=== PATIENT | female | born 1970 | race Asian ===

== ENCOUNTER 2016-08-04 12:30 | Outpatient (CLI) | payer OTHER ==
[~2016-08-04 12:30] MED LIST: AMBIEN5 MG PO; AMLO10TA PO; CALCITRIOL0.25 MCG PO; CARV25TA PO; CARV6.25 PO; CLONIDINE0.1 MG PO; CLONIDINE0.2 MG PO; DILTCAP36 PO; HYDR-2748 PO; HYDRALAZINE50 MG PO; LEVE250T PO; LEVE500T5 PO; MINOXIDIL2.5 MG OR; MINOXIDIL2.5 MG PO; RENVELA800 MG OR; RENVELA800 MG PO; SENSIPAR60 MG PO
== END 2016-08-04 13:30 | disposition home or self-care (01) ==
LOC: RAD 12:30
DX: D86.89 Sarcoidosis of other sites (principal)

== ENCOUNTER 2017-05-24 15:19 | Inpatient (IN) | payer OTHER ==
[~2017-05-24] VITALS: Ht 162.6 cm; Wt 71.7 kg
[2017-05-24 15:25] VITALS: BP 147/87; TEMP 98.6
[2017-05-24 16:24] LABS: PLATELET COUNT 178 K/uL (152-353)
[2017-05-24 16:31] LABS: POTASSIUM 4.2 mmol/L (3.6-5.2)
[2017-05-24 17:30] VITALS: BP 152/88
[2017-05-24 18:10] VITALS: BP 144/80
[2017-05-24 20:00] VITALS: BP 144/70; TEMP 100
[2017-05-24 23:03] VITALS: BP 169/85; TEMP 101.3; Ht 162.6 cm; Wt 71.7 kg
[2017-05-25] VITALS: BP 150/77; TEMP 99.7
[2017-05-25 04:00] VITALS: BP 165/84; TEMP 99.4
[2017-05-25 06:12] LABS: PLATELET COUNT 138 K/uL (152-353)
[2017-05-25 06:16] LABS: POTASSIUM 3.5 mmol/L (3.6-5.2)
[2017-05-25 08:00] VITALS: BP 172/88; TEMP 98.6
[2017-05-25 12:00] VITALS: BP 165/90; TEMP 98
[2017-05-25 16:00] VITALS: BP 172/92; TEMP 98.8
[2017-05-25 20:00] VITALS: BP 180/102; TEMP 98.4
[2017-05-26] VITALS: BP 183/99; TEMP 98.6
[2017-05-26 04:00] VITALS: BP 148/56; TEMP 98.2
[2017-05-26 08:00] VITALS: BP 177/96; TEMP 99.2
[2017-05-26 13:15] LABS: PLATELET COUNT 138 K/uL (152-353)
[2017-05-26 13:31] LABS: POTASSIUM 3.5 mmol/L (3.6-5.2)
[2017-05-26 16:00] VITALS: BP 102/56; TEMP 98.3
[2017-05-26 20:00] VITALS: BP 94/46; TEMP 97.7
[2017-05-27] VITALS: BP 112/64; TEMP 99.4
[2017-05-27 04:00] VITALS: BP 110/58; TEMP 98.1
[2017-05-27 08:00] VITALS: BP 120/60; TEMP 99.3
[2017-05-27 08:21] LABS: POTASSIUM 4.1 mmol/L (3.6-5.2)
[2017-05-27 08:22] LABS: PLATELET COUNT 138 K/uL (152-353)
[2017-05-27 12:00] VITALS: BP 123/73; TEMP 99.3
[2017-05-27 15:53] VITALS: BP 123/72; TEMP 98.7
== END 2017-05-27 16:50 | disposition home or self-care (01) | DRG 438 ==
LOC: ED 15:19 → MED/SURG 17:15 → ED 17:15 → MED/SURG 17:15
PROVIDERS: Emergency Medicine; Family Medicine
PROC: 5A1D70Z Performance of Urinary Filtration, Intermittent, Less than 6 Hours Per Day (ICD-10-PCS; principal; 2017-05-26)
DX: K85.80 Other acute pancreatitis without necrosis or infection (principal); N18.6 End stage renal disease; K57.32 Diverticulitis of large intestine without perforation or abscess without bleeding; I12.0 Hypertensive chronic kidney disease with stage 5 chronic kidney disease or end stage renal disease; I31.3 Pericardial effusion (noninflammatory); R19.09 Other intra-abdominal and pelvic swelling, mass and lump
CPT/HCPCS: 36415; 36600; 80053; 82150; 82805; 83605; 83690; 83735; 85027; 85379; 93005; 94760; J0744; J1644; J1650; J1940; J2270; J2405; J3490

== ENCOUNTER 2017-07-04 15:12 | Outpatient (CLI) | payer OTHER | END 2017-07-04 22:05 | disposition home or self-care (01) | LOC: MAMMO 15:12 | DX: Z12.31 Encounter for screening mammogram for malignant neoplasm of breast (principal) ==

== ENCOUNTER 2017-08-13 17:10 | Emergency (ER) | payer OTHER ==
[~2017-08-13] VITALS: Ht 162.6 cm; Wt 75.8 kg
[2017-08-13 17:19] VITALS: TEMP 98.4
[2017-08-13 18:49] VITALS: BP 145/73
== END 2017-08-13 18:52 | disposition home or self-care (01) ==
LOC: ED 17:10
DX: F41.8 Other specified anxiety disorders (principal)
CPT/HCPCS: 99282

== ENCOUNTER 2017-08-16 10:39 | Emergency (ER) | payer OTHER ==
[~2017-08-16] VITALS: Ht 162.6 cm; Wt 71.7 kg
[2017-08-16 10:25] VITALS: TEMP 97.2
[2017-08-16] MEDS ORDERED: LORA0.5T17 PO (10:53)
[2017-08-16 11:02] LABS: PLATELET COUNT 166 K/uL (152-353)
[2017-08-16 11:17] LABS: POTASSIUM 3.8 mmol/L (3.6-5.2)
[2017-08-16 13:51] VITALS: BP 158/85
== END 2017-08-16 13:59 | disposition home or self-care (01) ==
LOC: ED 10:39
PROVIDERS: Emergency Medicine
DX: N18.5 Chronic kidney disease, stage 5 (principal); R56.9 Unspecified convulsions
CPT/HCPCS: 36415; 80053; 83735; 84100; 85027; 99283

== ENCOUNTER 2017-09-02 13:00 | Outpatient (CLI) | payer OTHER ==
[~2017-09-02 13:00] MED LIST changes: +LORA0.5T17 PO
== END 2017-09-02 18:00 | disposition home or self-care (01) ==
LOC: RAD 13:00
DX: R05 Cough (principal)

== ENCOUNTER 2017-11-10 14:32 | Emergency (ER) | payer OTHER ==
[~2017-11-10] VITALS: Ht 162.6 cm; Wt 72.6 kg
[2017-11-10 16:20] VITALS: BP 162/93; TEMP 97.8
== END 2017-11-10 16:20 | disposition home or self-care (01) ==
LOC: ED 14:32
DX: F41.8 Other specified anxiety disorders (principal)
CPT/HCPCS: 99282

== ENCOUNTER 2017-11-21 17:48 | Emergency (ER) | payer OTHER ==
[~2017-11-21] VITALS: Ht 162.6 cm; Wt 71.7 kg
[2017-11-21 18:48] LABS: PLATELET COUNT 201 K/uL (152-353)
[2017-11-22 00:28] VITALS: BP 148/75; TEMP 97.9
== END 2017-11-22 00:40 | disposition home or self-care (01) ==
LOC: ED 17:48
DX: K52.89 Other specified noninfective gastroenteritis and colitis (principal); K57.92 Diverticulitis of intestine, part unspecified, without perforation or abscess without bleeding
CPT/HCPCS: 36415; 80053; 85027; 96374; 99284; J2175; Q9963

== ENCOUNTER 2017-12-27 11:49 | Outpatient (CLI) | payer OTHER | END 2017-12-27 19:09 | disposition home or self-care (01) | LOC: LAB 11:49 | DX: G40.301 Generalized idiopathic epilepsy and epileptic syndromes, not intractable, with status epilepticus (principal) | CPT/HCPCS: 82542 ==

== ENCOUNTER 2018-01-19 09:40 | Outpatient (CLI) | payer OTHER | END 2018-01-19 19:17 | disposition home or self-care (01) | LOC: RESP 09:40 | DX: G40.309 Generalized idiopathic epilepsy and epileptic syndromes, not intractable, without status epilepticus (principal) ==

== ENCOUNTER 2018-10-05 09:59 | Outpatient (CLI) | payer OTHER | END 2018-10-05 20:30 | disposition home or self-care (01) | LOC: RAD 09:59 | DX: Z13.9 Encounter for screening, unspecified (principal) ==

== ENCOUNTER 2019-04-28 11:44 | Outpatient (CLI) | payer OTHER | END 2019-04-28 22:13 | disposition home or self-care (01) | LOC: LAB 11:44 | DX: D64.89 Other specified anemias (principal) | CPT/HCPCS: 85014; 85018 ==

== ENCOUNTER 2019-07-26 14:58 | Outpatient (CLI) | payer OTHER | END 2019-07-26 19:48 | disposition home or self-care (01) | LOC: RAD 14:58 | DX: R05 Cough (principal) ==

== ENCOUNTER 2019-11-06 20:40 | Emergency (ER) | payer OTHER ==
[~2019-11-06] VITALS: Ht 162.6 cm; Wt 70.4 kg
[2019-11-06 21:51] LABS: PLATELET COUNT 172 K/uL (152-353)
[2019-11-06 22:06] LABS: POTASSIUM 5.5 mmol/L (3.6-5.2)
[2019-11-07 00:42] VITALS: BP 136/84; TEMP 99.2
== END 2019-11-07 00:42 | disposition home or self-care (01) ==
LOC: ED 20:40
DX: K52.89 Other specified noninfective gastroenteritis and colitis (principal); N28.89 Other specified disorders of kidney and ureter; Z99.2 Dependence on renal dialysis
CPT/HCPCS: 36415; 80053; 85027; 99283

== ENCOUNTER 2020-04-29 10:11 | Outpatient (CLI) | payer OTHER ==
[2020-04-29 10:38] LABS: PLATELET COUNT 187 K/uL (152-353)
[2020-04-29 10:49] LABS: POTASSIUM 6.4 mmol/L (3.6-5.2)
== END 2020-04-29 19:04 | disposition home or self-care (01) ==
LOC: LABW 10:11
PROVIDERS: Family Medicine
DX: I10 Essential (primary) hypertension (principal); E53.8 Deficiency of other specified B group vitamins; E55.9 Vitamin D deficiency, unspecified; R53.83 Other fatigue; Z13.220 Encounter for screening for lipoid disorders; Z99.2 Dependence on renal dialysis
CPT/HCPCS: 80053; 80061; 82306; 82607; 83520; 85027

== ENCOUNTER 2020-05-03 13:23 | Outpatient (CLI) | payer OTHER | END 2020-05-03 22:25 | disposition home or self-care (01) | LOC: LAB 13:23 | PROVIDERS: ATTEND Internal Medicine Nephrology | DX: E78.49 Other hyperlipidemia (principal) | CPT/HCPCS: 84132 ==

== ENCOUNTER 2020-05-07 15:53 | Outpatient (CLI) | payer OTHER | END 2020-05-07 20:50 | disposition home or self-care (01) | LOC: LABW 15:53 | PROVIDERS: ATTEND Orthopaedic Surgery | DX: M79.641 Pain in right hand (principal); M25.531 Pain in right wrist; G56.01 Carpal tunnel syndrome, right upper limb; M67.431 Ganglion, right wrist; R22.31 Localized swelling, mass and lump, right upper limb | CPT/HCPCS: 36415; 82565; 84520 ==

== ENCOUNTER 2020-08-01 01:00 | Emergency (ER) | payer OTHER ==
[~2020-08-01] VITALS: Ht 162.6 cm; Wt 85.7 kg
[2020-08-01 01:41] LABS: PLATELET COUNT 157 K/uL (152-353)
[2020-08-01 01:53] LABS: POTASSIUM 4.5 mmol/L (3.6-5.2)
[2020-08-01 02:50] VITALS: BP 138/80; TEMP 97.8
== END 2020-08-01 02:50 | disposition home or self-care (01) ==
LOC: ED 01:01
PROVIDERS: Emergency Medicine
DX: R19.7 Diarrhea, unspecified (principal); R10.84 Generalized abdominal pain; R51.9 Headache, unspecified; N18.6 End stage renal disease; Z99.2 Dependence on renal dialysis
CPT/HCPCS: 36415; 80053; 82150; 83690; 85027; 96374; 96375; 99284; J1200; J1885; J2405

== ENCOUNTER 2020-09-10 15:01 | Outpatient (CLI) | payer OTHER | END 2020-09-10 22:10 | disposition home or self-care (01) | LOC: INF 15:01 | PROVIDERS: ATTEND Internal Medicine | DX: Z23 Encounter for immunization (principal) | CPT/HCPCS: 96372 ==

== ENCOUNTER 2020-10-02 15:24 | Outpatient (CLI) | payer OTHER | END 2020-10-02 22:03 | disposition home or self-care (01) | LOC: INF 15:24 | PROVIDERS: ATTEND Internal Medicine | DX: Z23 Encounter for immunization (principal) | CPT/HCPCS: 96372 ==

== ENCOUNTER 2020-12-04 19:58 | Emergency (ER) | payer OTHER ==
[2020-12-19 11:10] LABS: POTASSIUM 3.8 mmol/L (3.6-5.2); SODIUM 139 mmol/L (136-145)
[2020-12-19 11:12] LABS: PLATELET COUNT 240 K/uL (152-353)
== END 2020-12-04 22:48 | disposition home or self-care (01) ==
LOC: ED 19:58
PROVIDERS: Emergency Medicine
DX: R42 Dizziness and giddiness (principal); N18.6 End stage renal disease; Z99.2 Dependence on renal dialysis; Z86.79 Personal history of other diseases of the circulatory system; R00.0 Tachycardia, unspecified
CPT/HCPCS: 36415; 80048; 82550; 82553; 83735; 84100; 84484; 85027; 93005; 96360; 99284

== ENCOUNTER 2021-02-18 09:47 | Outpatient (CLI) | payer OTHER | END 2021-02-18 23:00 | disposition home or self-care (01) | LOC: US 09:47 | PROVIDERS: ATTEND Internal Medicine | DX: Z01.810 Encounter for preprocedural cardiovascular examination (principal); Z01.818 Encounter for other preprocedural examination; N18.6 End stage renal disease ==

== ENCOUNTER 2021-06-22 23:18 | Emergency (ER) | payer OTHER ==
[~2021-06-22] VITALS: Ht 162.6 cm; Wt 82.1 kg
[2021-06-23 00:33] LABS: POTASSIUM 5.3 mmol/L (3.6-5.2)
[2021-06-23 00:51] LABS: PLATELET COUNT 228 K/uL (152-353)
[2021-06-23 02:49] VITALS: BP 106/61; TEMP 97
== END 2021-06-23 03:15 | disposition short-term general hospital (02) ==
LOC: ED 23:18
PROVIDERS: Emergency Medicine
DX: K92.2 Gastrointestinal hemorrhage, unspecified (principal); N18.6 End stage renal disease; Z99.2 Dependence on renal dialysis; U07.1 COVID-19
CPT/HCPCS: 36415; 80053; 82272; 85027; 87635; 96372; 96374; 99284; J1170; J2405; U0003

== ENCOUNTER 2022-02-12 12:20 | Outpatient (CLI) | payer OTHER | END 2022-02-12 21:05 | disposition home or self-care (01) | LOC: MAMMO 12:20 | PROVIDERS: ATTEND Specialist | DX: Z12.31 Encounter for screening mammogram for malignant neoplasm of breast (principal) ==

== ENCOUNTER 2022-03-29 07:16 | Emergency (ER) | payer OTHER ==
[~2022-03-29] VITALS: Ht 162.6 cm; Wt 78.0 kg
[2022-03-29 07:20] VITALS: TEMP 98.4
[2022-03-29 08:09] LABS: PLATELET COUNT 316 K/uL (152-353)
[2022-03-29 08:19] LABS: POTASSIUM 4.5 mmol/L (3.6-5.2); SODIUM 132 mmol/L (136-145)
[2022-03-29 08:31] LABS: PARTIAL THROMBOPLASTIN TIME 27.2 SECONDS (24.5-33.6)
[2022-03-29 16:00] VITALS: BP 128/74
== END 2022-03-29 16:10 | disposition short-term general hospital (02) ==
LOC: ED 07:16
PROVIDERS: Emergency Medicine
DX: K57.32 Diverticulitis of large intestine without perforation or abscess without bleeding (principal); N18.6 End stage renal disease; R10.84 Generalized abdominal pain; Z99.2 Dependence on renal dialysis
CPT/HCPCS: 36415; 80053; 82272; 83690; 84484; 85027; 85610; 85730; 87040; 93005; 96365; 96366; 96375; 96376; 99284; J1956; J2270; J2405; J3490

== ENCOUNTER 2022-05-23 10:58 | Emergency (ER) | payer OTHER ==
[~2022-05-23] VITALS: Ht 162.6 cm; Wt 81.2 kg
[2022-05-23 11:00] VITALS: TEMP 98.4
[2022-05-23 11:37] LABS: PLATELET COUNT 314 K/uL (152-353)
[2022-05-23 12:36] LABS: POTASSIUM 4.6 mmol/L (3.6-5.2); SODIUM 132 mmol/L (136-145)
[2022-05-23 13:53] VITALS: BP 131/82
== END 2022-05-23 14:04 | disposition home or self-care (01) ==
LOC: ED 10:58
PROVIDERS: Family Medicine
DX: R10.32 Left lower quadrant pain (principal); N18.6 End stage renal disease; Z99.2 Dependence on renal dialysis; R19.7 Diarrhea, unspecified; K59.09 Other constipation; Z20.822 Contact with and (suspected) exposure to COVID-19
CPT/HCPCS: 36415; 80053; 82150; 82550; 83605; 83690; 83735; 84100; 84484; 85027; 87040; 87502; 87635; 93005; 96374; 99284; J2405; U0003

== ENCOUNTER 2022-11-02 20:34 | Emergency (ER) | payer OTHER ==
[~2022-11-02] VITALS: Ht 162.6 cm; Wt 73.0 kg
[2022-11-02 20:45] VITALS: TEMP 98.2
[2022-11-02 22:58] LABS: PLATELET COUNT 177 K/uL (152-353)
[2022-11-02 23:08] LABS: POTASSIUM 5.4 mmol/L (3.6-5.2); SODIUM 128 mmol/L (136-145)
[2022-11-02 23:27] LABS: PARTIAL THROMBOPLASTIN TIME 37.3 SECONDS (23.9-36.7)
[2022-11-03 01:25] VITALS: BP 152/82
== END 2022-11-03 01:25 | disposition home or self-care (01) ==
LOC: ED 20:34
PROVIDERS: Emergency Medicine
DX: N18.6 End stage renal disease (principal); Z99.2 Dependence on renal dialysis
CPT/HCPCS: 80053; 83690; 85027; 85610; 85730; 96372; 99283; J2270; J2405